=== PATIENT | female | born 1990 | race Caucasian/White ===

== ENCOUNTER → 2019-05-12 | Outpatient (CLI) | payer BC ==
--- NOTE | 2019-05-13 10:41 | NM ---
EXAMINATION TYPE: NM thyroid image w uptake DATE OF EXAM: 05/13/2019 COMPARISON: No comparisons available at this institution. HISTORY: Left lobectomy of the thyroid gland. Current thyroid swelling, cold intolerance, changing he re, change in males, irritability, and difficulty swallowing. TECHNIQUE: Thyroid iodine uptake is calculated and images performed after the oral administration of 295 uCi 1-123 Capsule. FINDINGS: There is normal distribution of activity throughout the gland. The 4 hour iodine uptake is calculated at 15.7% (normal range 8-14%). The 24-hour iodine uptake is calculated at 30.1% (normal r nico 15-35%). There is heterogenous uptake throughout the right thyroid gland with more avid uptake medially within the mid gland and centrally within the lower pole of the right thyroid lobe. Isthmus is unremarkable . No extension beyond the substernal notch. IMPRESSION: 1. Mildly elevated uptake on 4 hour imaging however patient is euthyroid on delayed 24-hour imaging. 2. More avid uptake in the medial mid and central lower poles of the right thyroid gland. Correlate w ith thyroid ultrasound to assess for autonomously functioning thyroid nodule.
== END | disposition home or self-care (01) ==
LOC: RADNMMAIN 09:23
PROVIDERS: ATTEND Family Medicine
DX: R22.0 Localized swelling, mass and lump, head (principal); R94.6 Abnormal results of thyroid function studies
CPT/HCPCS: 78014; A9516

== ENCOUNTER 2019-06-10 12:15 | Day surgery (SDC) | payer BC ==
[2019-06-10 12:28] VITALS: RESP 16; TEMP 97.7
[2019-06-10 13:14] VITALS: BP 111/65; PULSE 70
--- NOTE | 2019-06-10 15:39 | US ---
ULTRASOUND GUIDED FNA THYROID BIOPSY: CLINICAL HISTORY: Right thyroid nodule FINDINGS: The procedure was explained to the patient. The risks, complications, benefits and alternatives were discussed and any questions were answered. Informed consent was obtained. Patient was placed supin e on the ultrasound table and prepped and draped in the usual sterile fashion. Utilizing a 25 gauge needle, five passes were made into the right thyroid nodule. Patient was stable throughout the procedure. Pathology is pending. All elements of maximal barrier technique were utilized. IMPRESSION: 1. Successful ultrasound guided FNA thyroid biopsy.
== END 2019-06-10 13:25 | disposition home or self-care (01) ==
LOC: RADPROMAIN 12:15
PROVIDERS: ATTEND Otolaryngology Plastic Surgery within the Head & Neck
DX: E04.1 Nontoxic single thyroid nodule (principal)
CPT/HCPCS: 10005; 88173; 88305

== ENCOUNTER → 2019-09-07 | Outpatient (CLI) | payer BC ==
--- NOTE | 2019-09-07 15:12 | US ---
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 Right thyroid nodule, left lobe removed 2018, history of thyroid FNA GLAND SIZE: Right Lobe: 6.2 x 2.0 x 2.1 cm Overall Parenchyma: heterogenous Left Lobe: surgically absent Isthmus Thickness: 0.4 cm NODULES RIGHT: # of nodules measured on right: 1 1. 3.1 X 1.9 x 2.2 cm hypoechoic mixed nodule at the lower pole with well-defined margins. This nod ule is wider than tall and shows intranodular vascularity. Prior size: 3.2 x 1.8 cm LEFT: surgically absent ISTHMUS: # of nodules measured in the isthmus: 0 Bilateral neck scanned, no evidence of lymphadenopathy. Left thyroid lobe removed, enlarged right lobe with nodule inferior pole described above. IMPRESSION: 1. Thyroidectomy changes on the left. No evidence for recurrent mass. Stable nodule right thyroid lob e is nonspecific.
== END | disposition home or self-care (01) ==
LOC: RADUSWWP 14:17
PROVIDERS: ATTEND Otolaryngology Plastic Surgery within the Head & Neck
DX: E04.1 Nontoxic single thyroid nodule (principal); E89.0 Postprocedural hypothyroidism; D49.7 Neoplasm of unspecified behavior of endocrine glands and other parts of nervous system
CPT/HCPCS: 76536

== ENCOUNTER → 2020-11-16 | Outpatient (CLI) | payer BC ==
[2020-11-16 15:21] LABS: Basophils # (A) 0.05 X 10*3/uL (0.00-0.10); Eosinophils # (A) 0.29 X 10*3/uL (0.04-0.35); Eosinophils % (A) 5.8 %; HCT 42.2 % (37.2-46.3); HGB 14.1 g/dL (12.0-15.0); MCH 32.3 pg (27.0-32.0); MCHC 33.4 g/dL (32.0-37.0); MCV 96.6 fL (80.0-97.0); Mean Platelet Volume 11.6 fL (9.5-12.2); Monocytes # (A) 0.47 X 10*3/uL (0.20-1.00); Monocytes % (A) 9.4 %; Neutrophils # (A) 2.18 X 10*3/uL (1.80-7.70); Neutrophils % (A) 43.6 %; Platelet Count 238 X 10*3/uL (140-440); RBC 4.37 X 10*6/uL (4.10-5.20)
[2020-11-16 19:24] LABS: African American GFR (CKD) 113.1 (60.0-200.0); Albumin 4.9 g/dL (3.80-4.90); Albumin/Globulin Ratio 1.88 (1.60-3.17); Anion Gap 10.2 mmol/L (4.00-12.00); BUN/Creat Ratio 13.75 Ratio (12.00-20.00); Calcium 9.4 mg/dL (8.7-10.3); Carbon Dioxide 23.8 mmol/L (21.6-31.8); Chol/HDL Ratio 3.4; Globulin 2.6 g/dL (1.6-3.3); LDL Cholesterol,Calculated 104.2 mg/dL (0.0-131.0); Non-African American GFR(CKD) 97.6 (60.0-200.0); Potassium 4.3 mmol/L (3.5-5.5); Total Bilirubin 0.5 mg/dL (0.3-1.2); Total Protein 7.5 g/dL (6.2-8.2); VLDL Calculation 15.8 mg/dL (5.00-40.00)
== END | disposition home or self-care (01) ==
LOC: LABWHC1 10:07
PROVIDERS: ATTEND Internal Medicine
DX: E66.3 Overweight (principal); E06.3 Autoimmune thyroiditis; D72.10 Eosinophilia, unspecified; R53.82 Chronic fatigue, unspecified
CPT/HCPCS: 36415; 80053; 80061; 84443; 85025

== ENCOUNTER → 2020-12-07 | Outpatient (CLI) | payer BC ==
--- NOTE | 2020-12-08 07:55 | US ---
EXAMINATION TYPE: US thyroid st tissue head/neck DATE OF EXAM: 12/07/2020 COMPARISON: NONE CLINICAL HISTORY: E04.1 SINGLE THYROID NODULE. Thyroid nodule, history of left thyroidectomy, history of FNA GLAND SIZE: Right Lobe: 6.2 x 2.0 x 2.0 cm Overall Parenchyma: homogenous Isthmus Thickness: 0.3 cm NODULES RIGHT: # of nodules measured on right: 1 1. 3.1 X 1.7 x 2.3 cm inferior pole mixed cystic and solid, isoechoic nodule, which is wider than t all, with smooth margins, without echogenic foci. Prior size: 3.1 x 1.9 x 2.2 cm LEFT: # of nodules measured on left: 0. Left thyroid lobectomy has been performed. ISTHMUS: # of nodules measured in the isthmus: 0 Bilateral neck scanned, no evidence of lymphadenopathy. IMPRESSION: Benign-appearing nodule right lobe thyroid 2017 ACR TI-RADS LEVEL: TR-RADS 2 - Not Suspicious: No FNA *Highest TI-RADS level nodule reported
== END ==
LOC: RADUSWWP 15:31
PROVIDERS: ATTEND Internal Medicine
DX: E04.1 Nontoxic single thyroid nodule (principal)
CPT/HCPCS: 76536

== ENCOUNTER → 2022-10-11 | Outpatient (CLI) | payer BC | END | disposition home or self-care (01) | LOC: LABWHC1 13:07 | PROVIDERS: ATTEND Obstetrics & Gynecology | DX: Z36.9 Encounter for antenatal screening, unspecified (principal) | CPT/HCPCS: 36415; 82950 ==

== ENCOUNTER 2022-12-26 09:59 | Inpatient (IN) | payer BC, OTHER ==
--- NOTE | 2022-12-26 08:50 | P.HPOB ---
History of Present Illness H&P Date: 12/26/22 Chief Complaint: Term , history of section This is a woman with a EDC of 01/02/23 who is admitted at 39 weeks for planned repeat LTCS. She has history of 2 previous LTCS. has been complicated by maternal COVID infection and all testing has been reassuring. Labs: blood type A negative, antibody screen negative, received RhIG, rubella immune, VDRL NR, Hep B surface antigen negative, HIV negaitve. GTT wnl, GBS negative. OB history notable for LTCS in 2010 and 2013, one early miscarriage. Review of Systems All systems: negative Past Medical History Past Medical History: Asthma, Hyperlipidemia, Thyroid Disorder History of Any Multi-Drug Resistant Organisms: None Reported Past Surgical History: Section (x2, 2010 and 2013) Additional Past Surgical History / Comment(s): Left Thyroidectomy 2018 Past Anesthesia/Blood Transfusion Reactions: No Reported Reaction Past Psychological History: No Psychological Hx Reported Smoking Status: Never smoker Past Alcohol Use History: Occasional Past Drug Use History: None Reported - Past Family History Mother Family Medical History: No Reported History Medications and Allergies Home Medications Medication Instructions Recorded Confirmed Type No Known Home Medications 05/31/19 06/10/19 History Allergies Allergy/AdvReac Type Severity Reaction Status Date / Time No Known Allergies Allergy Verified 06/10/19 12:26 Exam Pleasant, gravid female in no acute distress. HEENT exam negative for enlarged thyroid. Breathing unlabored and heart regular rate. ABdomne gravid with fundal height consistent with dates. Pelvic exam deferred. 1+ LE edema. Assessment and Plan (1) Term Status: Acute Code(s): Z34.90 - ENCNTR FOR SUPRVSN OF NORMAL , UNSP, UNSP TRIMESTER SNOMED Code(s): 18155632 (2) History of section Status: Acute Code(s): Z98.891 - HISTORY OF UTERINE SCAR FROM PREVIOUS SURGERY SNOMED Code(s): 294352753 Plan: 32 year old admitted at 39 weeks for scheduled repeat LTCS. Procedure has been reviewed in the office in detail. Risks include bleeding transfusion, infection, injury to maternal or structures, DVT/PE and anesthesia complications.
[2022-12-26] MEDS ORDERED: LACTATED RINGERS 1,000 ML IV SCH (10:37)
[2022-12-26] MEDS ORDERED: CITRIC ACID-SODIUM CITRATE 15 ML CUP PO ONE (10:37)
[2022-12-26] MEDS ORDERED: LACTATED RINGERS 1,000 ML IV ONE (10:37)
[2022-12-26 12:03] LABS: Basophils % (A) 0 %; Eosinophils # (A) 0.1 k/uL (0-0.7); Eosinophils % (A) 2 %; HCT 36.3 % (34.0-46.0); HGB 12.6 gm/dL (11.4-16.0); Lymphocytes % (A) 14 %; MCH 34.5 pg (25.0-35.0); MCHC 34.7 g/dL (31.0-37.0); MCV 99.3 fL (80.0-100.0); Mean Platelet Volume 9.3; Monocytes # (A) 0.5 k/uL (0-1.0); Monocytes % (A) 7 %; Neutrophils # (A) 5.5 k/uL (1.3-7.7); Neutrophils % (A) 75 %; Platelet Count 192 k/uL (150-450); RBC 3.65 m/uL (3.80-5.40); WBC 7.4 k/uL (3.8-10.6)
[2022-12-26] MEDS ORDERED: ONDANSETRON 4 MG/2 ML VIAL ONE (12:07)
[2022-12-26] MEDS ORDERED: MORPHINE SULFATE (PF) 0.3 MG/0.3 ML SYR ONE (12:07)
[2022-12-26] MEDS ORDERED: ePHEDrine 50 MG/ML 1 ML VIAL ONE (12:07)
[2022-12-26] MEDS ORDERED: NALBUPHINE 10 MG/ML (1 ML AMP) ONE (12:07)
[2022-12-26] MEDS ORDERED: KETOROLAC 15 MG/ML 1 ML VIAL ONE (12:07)
[2022-12-26] MEDS ORDERED: OXYTOCIN 30 UNITS/500 ML NS BAG IV ONE (12:07)
[2022-12-26] MEDS ORDERED: ONDANSETRON 4 MG/2 ML VIAL IVP PRN (13:02)
[2022-12-26] MEDS ORDERED: diphenhydrAMINE 25 MG CAP PO PRN (13:02)
[2022-12-26] MEDS ORDERED: HYDROmorphone 2 MG TAB PO PRN (13:02)
[2022-12-26] MEDS ORDERED: ZOLPIDEM 5 MG TAB PO PRN (13:02)
[2022-12-26] MEDS ORDERED: diphenhydrAMINE 50 MG CAP PO PRN (13:02)
[2022-12-26] MEDS ORDERED: diphenhydrAMINE 50 MG/ML 1 ML VIAL IVP PRN ×2 (13:02)
[2022-12-26] MEDS ORDERED: NALOXONE 0.4 MG/ML 1 ML VIAL IV PRN (13:02)
[2022-12-26] MEDS ORDERED: METOCLOPRAMIDE 5 MG/ML 2 ML VIAL IVP PRN (13:02)
--- NOTE | 2022-12-26 13:02 | P.OP ---
Date of Procedure: 12/26/22 Postoperative Diagnosis: Intrauterine at 39 weeks gestation History of low transverse section 2 Maternal hypothyroidism Extremely thin low uterine segment Anesthesia: spinal Surgeon: Deb Ortiz Gang Investigator #1: Caio Johnson Estimated Blood Loss (ml): 600 IV fluids (ml): 1,000 Urine output (ml): 100 Pathology: none sent Condition: stable Disposition: floor Operative Findings: Liveborn male in the vertex presentation with nuchal cord 1. Apgars of 9 at 1 minute and 9 at 5 minutes weighing 7 lbs. 10 oz., 3450 g. Extremely paper thin low uterine segment. Amniotic fluid visible through the low uterine myometrium. Normal-appearing bilateral fallopian tubes and ovaries. Description of Procedure: After the patient was met preoperatively and all questions were answered, she was taken to the operating room where spinal anesthetic was administered without incident. She was then positioned, prepped and draped in the dorsal supine position with a leftward tilt. Hale catheter was placed. After anesthetic was confirmed adequate, a low transverse skin incision was made following the pre- existing scar. This was carried down to the underlying fascia both sharply and with the electrocautery. The fascia was then incised in the midline and extended bilaterally with the Fay scissors. The superior aspect of the fascial incision was elevated and the underlying rectus muscles dissected off sharply and with the electrocautery. The inferior aspect of the fascial incision was also elevated and the underlying rectus muscles dissected off sharply. The muscles were adherent in the midline. These were bluntly and the peritoneum was tented up with hemostats. The peritoneum was entered sharply with the Metzenbaum scissors. The peritoneal incision was extended inferiorly and superiorly with good visualization of the bladder. The bladder blade was placed. The low uterine segment was noted to be extremely thin. The amniotic fluid was noted to be visible through the paper 1 uterine wall. The bladder flap was therefore not created. A low transverse uterine incision was then made sharply and carried down to the underlying amniotic membranes. Membranes were ruptured and clear fluid was noted. The uterine incision was extended bilaterally bluntly. The infant's head was delivered from the incision without difficulty. Nuchal cord 1 reduced The nose and mouth were bulb suctioned. The rest of the was delivered onto the field without difficulty. And cut and the infant was taken to the warmer. An intact, three-vessel cord placenta was then manually removed and the uterus was exteriorized. The uterus was cleared of all clot and debris. The uterine incision was delineated with Lees clamps. The uterine incision was then closed in a running locked fashion with 0 Vicryl suture. Again inferiorly thin lower uterine segment made on repair difficult. A second imbricating layer was placed. Additional figure of eights in the left angle of the uterine incision were placed. Hemostasis was then achieved. The uterus was then returned to the abdomen and the gutters were cleared of all clot and debris. Regular and no powder was then placed over the entire uterine incision. The fascial edges, peritoneal edges and rectus muscles were inspected and Bovie electrocautery utilized were necessary for hemostasis. The fascia was then closed in a running fashion with 0 Vicryl suture. The subcuticular tissue was copiously suction irrigated and Bovie electrocautery utilized were necessary for hemostasis. 3-0 Vicryl suture was utilized to reapproximate the subcuticular tissue. The skin was then closed in a subcutaneous fashion with 4-0 Vicryl suture. All counts reported to me as correct by the operating room staff at the end of the procedure. The patient received antibiotics preoperatively and Pitocin following cord clamp. Mother and were both transported from the room in stable condition.
[2022-12-26] MEDS ORDERED: OXYTOCIN 30 UNITS/500 ML NS 30 UNIT in SALINE 1 500ML.BAG IV SCH (13:15)
[2022-12-26] MEDS: ACETAMINOPHEN TAB 500 MG TAB PO SCH ×2 (16:50→23:22)
[2022-12-26] MEDS: IBUPROFEN 600 MG TAB PO SCH (18:45)
[2022-12-26] MEDS: SENNOSIDES-DOCUSATE SODIUM 1 EACH TAB PO SCH (20:05)
[2022-12-26] MEDS ORDERED: Rhogam IMMUNE GLOBULIN 1,500 UNIT/1 ML IM ONE (23:04)
[2022-12-27] MEDS: IBUPROFEN 600 MG TAB PO SCH ×4 (01:22→21:10)
[2022-12-27] MEDS: IBUPROFEN IV 800 MG in SODIUM CHLORIDE 0.9% 250 ML IV SCH ×3 (03:51→14:08)
[2022-12-27] MEDS: ACETAMINOPHEN IV (For NPO) 1,000 MG in EMPTY BAG 1 BAG IVPB SCH (03:53)
[2022-12-27] MEDS: ACETAMINOPHEN TAB 500 MG TAB PO SCH ×3 (05:56→17:57)
[2022-12-27 07:18] LABS: Basophils % (A) 0 %; Eosinophils # (A) 0.2 k/uL (0-0.7); Eosinophils % (A) 2 %; HCT 34.2 % (34.0-46.0); HGB 11.4 gm/dL (11.4-16.0); Lymphocytes # (A) 1.1 k/uL (1.0-4.8); Lymphocytes % (A) 14 %; MCH 33.3 pg (25.0-35.0); MCHC 33.3 g/dL (31.0-37.0); Mean Platelet Volume 9.4; Monocytes # (A) 0.4 k/uL (0-1.0); Monocytes % (A) 5 %; Neutrophils # (A) 5.7 k/uL (1.3-7.7); Neutrophils % (A) 76 %; Platelet Count 204 k/uL (150-450); RBC 3.42 m/uL (3.80-5.40); RDW 13.5 % (11.5-15.5); WBC 7.5 k/uL (3.8-10.6)
[2022-12-27] MEDS: SENNOSIDES-DOCUSATE SODIUM 1 EACH TAB PO SCH ×2 (08:05→21:10)
--- NOTE | 2022-12-27 08:26 | P.PN ---
Progress Note - Text Progress Note Date: 12/27/22 Postop day 1 from under spinal anesthesia with intrathecal morphine given for postop pain management. Patient is doing well. Pain is well controlled. On visual analog scale 3/10 Mild itching present No nausea or vomiting reported. No Headache or weakness and numbness in the legs. No complications from spinal anesthesia.
--- NOTE | 2022-12-27 10:04 | P.PNOBGPC ---
Subjective - Subjective Principal diagnosis: Postop day 1, repeat section Interval history: Patient is doing well postoperatively. She is ambulating and voiding without difficulty. She is tolerating a regular diet without nausea and vomitting. her lochia is moderate to heavy. She states she is passing some small clots. Pain is well controlled. She is breast feeding with some difficulty. Patient reports: Reports appetite normal, Reports voiding normally, Reports pain well controlled, Reports ambulating normally : doing well, nursing well Objective - Vital Signs Latest vital signs: Vital Signs Temp Pulse Resp BP Pulse Ox 12/27/22 08:00 97.4 F L 76 16 102/60 12/27/22 04:00 97.3 F L 78 16 100/59 97 12/27/22 00:00 97.3 F L 80 16 97/53 96 12/26/22 20:00 98.9 F 76 20 115/70 12/26/22 16:59 97.5 F L 86 18 117/74 99 12/26/22 15:03 97.2 F L 67 16 102/58 100 12/26/22 14:33 70 16 111/60 99 12/26/22 14:03 73 16 119/56 99 12/26/22 13:48 71 16 122/61 100 12/26/22 13:33 72 16 101/53 100 12/26/22 13:18 72 16 109/53 100 12/26/22 12:58 96.4 F L 84 16 112/57 100 12/26/22 10:36 97.9 F 84 16 130/70 99 Intake and Output 12/26/22 12/27/22 12/27/22 22:59 06:59 14:59 Intake Total 480 Output Total 820 400 Balance -820 -400 480 Intake: IV 480 Output: Urine 700 400 Uretheral (Hale) 300 Output, Quantitative 120 Blood Loss Other: # Voids 1 1 1 # Bowel Movements 0 - Exam Extremities: Present: normal, edema Abdomen: Present: normal appearance, soft Incision: Present: normal, dry, intact Uterus: Present: normal, firm - Labs Labs: Abnormal Lab Results - Last 24 Hours (Table) 12/26/22 12/27/22 Range/Units 10:55 06:25 RBC 3.65 L 3.42 L (3.80-5.40) m/uL Assessment and Plan (1) S/P section Current Visit: Yes Status: Acute Code(s): Z98.891 - HISTORY OF UTERINE SCAR FROM PREVIOUS SURGERY SNOMED Code(s): 463178820 (2) History of section Current Visit: No Status: Acute Code(s): Z98.891 - HISTORY OF UTERINE SCAR FROM PREVIOUS SURGERY SNOMED Code(s): 116391616 (3) Term Current Visit: No Status: Acute Code(s): Z34.90 - ENCNTR FOR SUPRVSN OF NORMAL , UNSP, UNSP TRIMESTER SNOMED Code(s): 66509333 Plan: Patient is doing well post operatively. Plan to continue routine care and anticipate discharge home tomorrow.
[2022-12-28] MEDS: ACETAMINOPHEN TAB 500 MG TAB PO SCH (00:52)
[2022-12-28] MEDS: IBUPROFEN IV 800 MG in SODIUM CHLORIDE 0.9% 250 ML IV SCH (03:12)
[2022-12-28] MEDS: IBUPROFEN 600 MG TAB PO SCH ×2 (04:16→10:53)
[2022-12-28 08:11] VITALS: BP 116/73; PULSE 72; RESP 16; TEMP 98
--- NOTE | 2022-12-28 09:25 | P.DS ---
Providers Date of admission: 12/26/22 09:59 Expected date of discharge: 12/28/22 Attending physician: Deb Ortiz Primary care physician: Stated None - Discharge Diagnosis(es) (1) S/P section Current Visit: Yes Status: Acute (2) History of section Current Visit: No Status: Acute (3) Term Current Visit: No Status: Acute Hospital Course: This is a 32-year-old G4 now P3 013 at 39 weeks that is admitted to labor and delivery for planned repeat section. Patient is a history of 2 prior C-sections. Patient's care has been complicated by a maternal COVID-19 infection with all testing being reassuring. For full details on this patient please see the dictated history and physical. Patient was taken back to the operating suite for scheduled repeat s ection, procedure was completed without difficulty. Patient delivered a viable male weight of 7 lbs. 10 oz. The lower uterine segment was noted to be paper thin, amniotic fluid was visible through the lower uterine segment. Normal-appearing fallopian tubes and ovaries were appreciated. For full details on the please see the dictated operative report. Patient's postoperative course has been uneventful. On this postoperative day #2 she is in bleeding and voiding without difficulty. She is tolerating a regular diet without nausea or vomiting. She states her pain is well-con trolled. She denies concerns. She would like discharge home later today. Patient Condition at Discharge: Good Plan - Discharge Summary New Discharge Prescriptions: No Action Vit No.179/Iron/Folic [ Tablet] 1 tab PO DAILY Aspirin 1 tab PO DAILY Discharge Medication List Aspirin 1 tab PO DAILY 12/26/22 [History] Vit No.179/Iron/Folic [ Tablet] 1 tab PO DAILY 12/26/22 [History] Follow up Appointment(s)/Referral(s): Deb Ortiz MD [STAFF PHYSICIAN] - 2 Weeks Patient Instructions/Handouts: (DC), (GEN) Discharge Disposition: HOME SELF-CARE
== END 2022-12-28 13:40 | disposition home or self-care (01) | DRG 788 ==
LOC: 4FBP 09:59
PROVIDERS: ADMIT Obstetrics & Gynecology; ATTEND Obstetrics & Gynecology
PROC: 3E0234Z Introduction of Serum, Toxoid and Vaccine into Muscle, Percutaneous Approach (ICD-10-PCS; 2022-12-26)
PROC: 10D00Z1 Extraction of Products of Conception, Low, Open Approach (ICD-10-PCS; principal; 2022-12-26 12:00)
DX: O34.211 Maternal care for low transverse scar from previous cesarean delivery (principal); E78.5 Hyperlipidemia, unspecified; O69.81X0 Labor and delivery complicated by cord around neck, without compression, not applicable or unspecified; O99.284 Endocrine, nutritional and metabolic diseases complicating childbirth; O99.52 Diseases of the respiratory system complicating childbirth; E89.0 Postprocedural hypothyroidism; J45.909 Unspecified asthma, uncomplicated; O26.893 Other specified pregnancy related conditions, third trimester; Z67.11 Type A blood, Rh negative; N85.8 Other specified noninflammatory disorders of uterus; Z37.0 Single live birth; Z28.310 Unvaccinated for COVID-19; Z3A.39 39 weeks gestation of pregnancy; Z79.82 Long term (current) use of aspirin; Z79.899 Other long term (current) drug therapy; Z86.16 Personal history of COVID-19
CPT/HCPCS: 85025; 85461; 86850; 86900; 86901

== ENCOUNTER → 2025-02-28 | Outpatient (CLI) | payer BC ==
--- NOTE | 2025-02-28 12:04 | MM ---
Reason for Exam: Screening (asymptomatic). Baseline mammogram. Patient History: Menarche at age 10. First Full-Term at age 20. Premenopausal. Last menstrual period: 02/04/2025 Risk Values: Adriana 5 year model risk: 0.4%. NCI Lifetime model risk: 9.2%. Prior Study Comparison: Patient's first Mammogram. Tissue Density: The breasts are heterogeneously dense, which may obscure small masses. Findings: Analyzed By CAD. Right breast: There is no suspicious group of microcalcifications or new suspicious mass. Left breast: There is no suspicious group of microcalcifications or new suspicious mass. Overall Assessment: Negative, BI-RAD 1 Management: Screening Mammogram of both breasts in [address] [facility] will attempt to contact patient to return for supplemental views and ultrasound if indicated. Patient should continue monthly self-breast exams. A clinical breast exam by your physician is recommended on an annual basis. This exam should not preclude additional follow-up of suspicious palpable abnormalities. Note on Adriana scores and lifetime risk: 1. A Adriana score greater than 3% is considered moderate risk. If this is the case, consider specialist referral to assess eligibility for a risk reducing agent. 2. If overall lifetime risk for the development of breast cancer is 20% or higher, the patient may qualify for future screening with alternating mammogram and breast MRI. [facility], , 02/28/2025 12:02 PM. Electronically signed and approved by: Leif Rodriguez DO
== END | disposition home or self-care (01) ==
LOC: RADMAMWWP 11:30
PROVIDERS: ATTEND Internal Medicine Geriatric Medicine
DX: Z12.31 Encounter for screening mammogram for malignant neoplasm of breast (principal); R92.333 Mammographic heterogeneous density, bilateral breasts
CPT/HCPCS: 77063; 77067